=== PATIENT | female | born 1965 | race Asian ===

== ENCOUNTER 2017-11-06 11:54 | Outpatient (CLI) | payer OTHER ==
--- NOTE | 2017-11-06 13:58 | RAD ---
LUMBAR SPINE RADIOGRAPHS 3 VIEWS: Date: 11/06/17 PROVIDED CLINICAL HISTORY: Low back pain. FINDINGS: Five non-rib bearing lumbar-type vertebral bodies are present with hypoplastic ribs presumed at T12. Lumbar alignment appears normal. Vertebral body heights appear preserved. Minimal disc space narrowin g at L4-5. Lower lumbar spine facet arthritis changes are seen. Pedicles appear intact. Sacroiliac israel ints appear symmetric. There is conspicuous colonic fecal retention suggesting constipation. IMPRESSION: 1. Mild lower lumbar degenerative change. 2. Findings suggesting constipation. POS: OFF
== END 2017-11-06 11:55 | disposition home or self-care (01) ==
LOC: RAD-FRANK 11:54
PROVIDERS: ATTEND Internal Medicine
DX: M54.9 Dorsalgia, unspecified (principal); G89.29 Other chronic pain; M47.896 Other spondylosis, lumbar region
CPT/HCPCS: 72100

== ENCOUNTER 2022-01-25 07:52 | Outpatient (CLI) | payer BC | END 2022-01-25 07:53 | disposition home or self-care (01) | LOC: CT 07:52 | PROVIDERS: ATTEND Family Medicine | DX: R31.0 Gross hematuria (principal); N28.1 Cyst of kidney, acquired; I72.2 Aneurysm of renal artery | CPT/HCPCS: 74176 ==

== ENCOUNTER 2025-05-18 14:37 | Outpatient (CLI) | payer OTHER | END 2025-05-18 14:38 | disposition home or self-care (01) | LOC: BICMAMMO 14:37 | PROVIDERS: ATTEND Nurse Practitioner Family | DX: Z12.31 Encounter for screening mammogram for malignant neoplasm of breast (principal) | CPT/HCPCS: 77063; 77067 ==